=== PATIENT | female | born 1990 | race Two or more races ===

== ENCOUNTER 2016-11-05 15:49 | Emergency (ER) | payer OTHER ==
[2016-11-05] MEDS ORDERED: IOPAMIDOL 300 (61%) 100 ML VIAL IV ONE (15:50)
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
[2016-11-05] MEDS ORDERED: IBUPROFEN 600 MG TABLET ONE (21:32)
[2016-11-05] MEDS ORDERED: ACETAMINOPHEN 325 MG TABLET ONE (21:32)
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
== END 2016-11-05 22:51 | disposition home or self-care (01) ==
LOC: ED 15:49
DX: M54.2 Cervicalgia (principal); R07.9 Chest pain, unspecified; V47.5XXA Car driver injured in collision with fixed or stationary object in traffic accident, initial encounter; Y92.410 Unspecified street and highway as the place of occurrence of the external cause
CPT/HCPCS: 84703; 71020; 70491; 99284 ×2; A9270 ×2; Q9967